=== PATIENT | male | born 1955 | race Caucasian/White ===

== ENCOUNTER 2016-06-03 15:51 | Emergency (ER) | payer MEDICAID | END 2016-06-03 20:15 | disposition home or self-care (01) | LOC: D.ER 15:51 | DX: J20.9 Acute bronchitis, unspecified (principal); F41.9 Anxiety disorder, unspecified; F31.9 Bipolar disorder, unspecified ==

== ENCOUNTER 2016-09-16 23:55 | Emergency (ER) | payer MEDICAID | END 2016-09-17 02:31 | disposition home or self-care (01) | LOC: D.ER 23:55 | DX: M54.9 Dorsalgia, unspecified (principal); S29.012A Strain of muscle and tendon of back wall of thorax, initial encounter; V43.52XA Car driver injured in collision with other type car in traffic accident, initial encounter; Y93.89 Activity, other specified; Y92.410 Unspecified street and highway as the place of occurrence of the external cause; S39.012A Strain of muscle, fascia and tendon of lower back, initial encounter; F41.9 Anxiety disorder, unspecified; F31.9 Bipolar disorder, unspecified ==

== ENCOUNTER 2017-01-01 11:32 | Emergency (ER) | payer MEDICAID | END 2017-01-01 12:12 | disposition home or self-care (01) | LOC: D.ER 11:32 | DX: F41.9 Anxiety disorder, unspecified (principal); F31.89 Other bipolar disorder; R53.1 Weakness; R51 Headache ==

== ENCOUNTER 2017-01-11 16:19 | Emergency (ER) | payer MEDICAID ==
[2017-01-11 17:57] LABS: BASOPHILS 0.1 % (0-2); EOSINOPHILS 0.4 % (0-7); HEMATOCRIT 47.4 % (42.0-54.0); HEMOGLOBIN 16.3 g/dL (13.5-17.5); IMMATURE GRANULOCYTES 0.9 % (0-5); LYMPHOCYTES 18.4 % (15-50); MCH 30.4 pg (26.0-34.0); MCHC 34.4 g/dL (31.0-37.0); MCV 88.3 fL (80.0-100.0); MEAN PLATELET VOLUME 9.3 fL (7.4-10.4); MONOCYTES 9.6 % (2-11); NEUTROPHILS 70.6 % (40-80); PLATELET COUNT 228 10x3/uL (130-400); RBC 5.37 10x6/uL (4.20-6.10); RDW 13.6 % (11.5-14.5); WBC 9.2 10x3/uL (4.8-10.8)
[2017-01-11 18:54] LABS: APPEARANCE CLEAR (CLEAR); BILIRUBIN NEGATIVE (NEGATIVE); COLOR YELLOW (YELLOW); GLUCOSE NEGATIVE (NEGATIVE); KETONE NEGATIVE (NEGATIVE); LEUKOCYTE ESTERASE NEGATIVE (NEGATIVE); NITRITE NEGATIVE (NEGATIVE); PROTEIN NEGATIVE (NEGATIVE); UROBILINOGEN NORMAL (NORMAL)
== END 2017-01-11 19:10 | disposition home or self-care (01) ==
LOC: D.ER 16:19
PROVIDERS: Emergency Medicine; Nurse Practitioner Family
DX: S16.1XXA Strain of muscle, fascia and tendon at neck level, initial encounter (principal); X58.XXXA Exposure to other specified factors, initial encounter; Y93.89 Activity, other specified; Y92.89 Other specified places as the place of occurrence of the external cause; S39.012A Strain of muscle, fascia and tendon of lower back, initial encounter; M79.605 Pain in left leg; M79.604 Pain in right leg; F31.89 Other bipolar disorder; R07.9 Chest pain, unspecified; R51 Headache

== ENCOUNTER 2017-01-19 16:25 | Emergency (ER) | payer MEDICAID | END 2017-01-19 18:41 | disposition home or self-care (01) | LOC: D.ER 16:25 | DX: M54.6 Pain in thoracic spine (principal); M25.50 Pain in unspecified joint; F31.89 Other bipolar disorder; R51 Headache ==

== ENCOUNTER 2017-02-10 19:00 | Emergency (ER) | payer MEDICAID | END 2017-02-10 20:32 | disposition home or self-care (01) | LOC: D.ER 19:00 | DX: R52 Pain, unspecified (principal) ==

== ENCOUNTER 2017-04-05 15:48 | Emergency (ER) | payer MEDICAID ==
[2017-04-05 16:25] LABS: BASOPHILS 0.1 % (0-2); EOSINOPHILS 0.5 % (0-7); HEMATOCRIT 47.4 % (42.0-54.0); HEMOGLOBIN 16.4 g/dL (13.5-17.5); IMMATURE GRANULOCYTES 0.5 % (0-5); LYMPHOCYTES 8.8 % (15-50); MCH 30.5 pg (26.0-34.0); MCHC 34.6 g/dL (31.0-37.0); MCV 88.1 fL (80.0-100.0); MEAN PLATELET VOLUME 9.2 fL (7.4-10.4); MONOCYTES 1.8 % (2-11); NEUTROPHILS 88.3 % (40-80); PLATELET COUNT 193 10x3/uL (130-400); RBC 5.38 10x6/uL (4.20-6.10); RDW 13.1 % (11.5-14.5); WBC 14.4 10x3/uL (4.8-10.8)
[2017-04-05 17:18] LABS: ALBUMIN 4.1 g/dL (3.4-5.0); ALKALINE PHOSPHATASE 104 U/L (46-116); ALT (SGPT) 31 U/L (10-68); BILIRUBIN - TOTAL 0.48 mg/dL (0.2-1.3); CALC OSMOLALITY 276 mosm/kg (275-300); CALCIUM 9.1 mg/dL (8.5-10.1); CARBON DIOXIDE 25.7 mmol/L (21.0-32.0); CHLORIDE - SERUM 101 mmol/L (98-107); GLUCOSE 92 mg/dL (74-106); POTASSIUM - SERUM 3.9 mmol/L (3.5-5.1); PROTEIN - SERUM 7.7 g/dL (6.4-8.2); SODIUM 139 mmol/L (136-145); UREA NITROGEN 11 mg/dL (7-18); eGFR NON AFRICAN AMERICAN 81 mL/min (90-120)
[2017-04-05 17:52] LABS: APPEARANCE HAZY (CLEAR); BILIRUBIN NEGATIVE (NEGATIVE); COLOR DK YELLOW (YELLOW); GLUCOSE NEGATIVE (NEGATIVE); KETONE NEGATIVE (NEGATIVE); NITRITE NEGATIVE (NEGATIVE); PROTEIN NEGATIVE (NEGATIVE); SPECIFIC GRAVITY 1.015 (1.005-1.020); UROBILINOGEN NORMAL (NORMAL)
[2017-04-05 17:55] LABS: BACTERIA FEW /hpf (NONE SEEN); EPITHELIAL CELLS 0-5 /hpf (0-5); RED CELLS - URINE >50 /hpf (0-5); WHITE CELLS - URINE OCC /hpf (0-5)
== END 2017-04-05 20:11 | disposition left against medical advice (07) ==
LOC: D.ER 15:48
PROVIDERS: Emergency Medicine; Physician Assistant Medical
DX: R51 Headache (principal)

== ENCOUNTER 2017-04-07 17:04 | Emergency (ER) | payer MEDICAID ==
[2017-04-07 19:35] LABS: BASOPHILS 0.1 % (0-2); EOSINOPHILS 0 % (0-7); HEMATOCRIT 46.9 % (42.0-54.0); HEMOGLOBIN 16.2 g/dL (13.5-17.5); IMMATURE GRANULOCYTES 0.7 % (0-5); LYMPHOCYTES 13.6 % (15-50); MCH 29.9 pg (26.0-34.0); MCHC 34.5 g/dL (31.0-37.0); MCV 86.7 fL (80.0-100.0); MEAN PLATELET VOLUME 9.4 fL (7.4-10.4); MONOCYTES 6.3 % (2-11); NEUTROPHILS 79.3 % (40-80); PLATELET COUNT 152 10x3/uL (130-400); RBC 5.41 10x6/uL (4.20-6.10); RDW 13.5 % (11.5-14.5); WBC 7.6 10x3/uL (4.8-10.8)
[2017-04-07 19:49] LABS: ALBUMIN 3.6 g/dL (3.4-5.0); ALKALINE PHOSPHATASE 107 U/L (46-116); ALT (SGPT) 29 U/L (10-68); BILIRUBIN - TOTAL 0.57 mg/dL (0.2-1.3); CALC OSMOLALITY 272 mosm/kg (275-300); CALCIUM 9.1 mg/dL (8.5-10.1); CHLORIDE - SERUM 101 mmol/L (98-107); GLUCOSE 109 mg/dL (74-106); POTASSIUM - SERUM 3.5 mmol/L (3.5-5.1); PROTEIN - SERUM 7.7 g/dL (6.4-8.2); SODIUM 136 mmol/L (136-145); UREA NITROGEN 13 mg/dL (7-18); eGFR NON AFRICAN AMERICAN 81 mL/min (90-120)
[2017-04-07 19:52] LABS: CARBON DIOXIDE 23.4 mmol/L (21.0-32.0)
[2017-04-07 21:21] LABS: APPEARANCE CLOUDY (CLEAR); COLOR AMBER (YELLOW)
[2017-04-07 21:22] LABS: BILIRUBIN NEGATIVE (NEGATIVE); GLUCOSE NEGATIVE (NEGATIVE); KETONE LARGE mg/dL (NEGATIVE); NITRITE NEGATIVE (NEGATIVE); PROTEIN TRACE mg/dL (NEGATIVE); SPECIFIC GRAVITY 1.015 (1.005-1.020); UROBILINOGEN NORMAL (NORMAL)
[2017-04-07 21:23] LABS: RED CELLS - URINE 25-50 /hpf (0-5); WHITE CELLS - URINE 0-5 /hpf (0-5)
[2017-04-07 21:24] LABS: BACTERIA FEW /hpf (NONE SEEN)
== END 2017-04-07 22:50 | disposition home or self-care (01) ==
LOC: D.ER 17:04
PROVIDERS: Family Medicine
DX: R50.9 Fever, unspecified (principal); N40.0 Benign prostatic hyperplasia without lower urinary tract symptoms; B34.9 Viral infection, unspecified; F17.200 Nicotine dependence, unspecified, uncomplicated

== ENCOUNTER 2017-05-10 10:02 | Emergency (ER) | payer MEDICAID | END 2017-05-10 10:49 | disposition home or self-care (01) | LOC: D.ER 10:02 | DX: F41.9 Anxiety disorder, unspecified (principal) ==

== ENCOUNTER 2017-08-20 13:16 | Emergency (ER) | payer MEDICAID | END 2017-08-20 16:00 | disposition home or self-care (01) | LOC: D.ER 13:16 | DX: M79.605 Pain in left leg (principal) ==

== ENCOUNTER 2017-11-04 17:39 | Emergency (ER) | payer MEDICAID ==
[~2017-11-04] VITALS: Ht 182.9 cm; Wt 86.4 kg
[2017-11-04 17:48] VITALS: Ht 182.9 cm; Wt 86.4 kg
[2017-11-04] MEDS ORDERED: BUPROPION HCL100 MG PO ×2 (17:51→19:10)
[2017-11-04] MEDS ORDERED: TRAZODONE HCL150 MG PO (17:51)
[2017-11-04] MEDS ORDERED: TRAZODONE HCL50 MG PO (19:10)
[2017-11-04 19:14] VITALS: BP 136/87
== END 2017-11-04 19:15 | disposition home or self-care (01) ==
LOC: D.ER 17:39
DX: R51 Headache (principal); F41.9 Anxiety disorder, unspecified

== ENCOUNTER 2017-12-17 11:03 | Emergency (ER) | payer MEDICAID ==
[~2017-12-17] VITALS: Ht 182.9 cm; Wt 80.5 kg
[~2017-12-17 11:03] MED LIST: BUPROPION HCL100 MG PO; TRAZODONE HCL150 MG PO; TRAZODONE HCL50 MG PO
[2017-12-17 11:11] VITALS: Ht 182.9 cm; Wt 80.5 kg
[2017-12-17] MEDS ORDERED: LAMICTAL100 MG PO (11:13)
[2017-12-17] MEDS ORDERED: NEURONTIN 300300 MG PO (11:15)
[2017-12-17 13:17] LABS: BASOPHILS 0.1 % (0-2); EOSINOPHILS 0.4 % (0-7); HEMATOCRIT 44.1 % (42.0-54.0); HEMOGLOBIN 15.2 g/dL (13.5-17.5); IMMATURE GRANULOCYTES 0.1 % (0-5); LYMPHOCYTES 15.2 % (15-50); MCH 30.4 pg (26.0-34.0); MCHC 34.5 g/dL (31.0-37.0); MCV 88.2 fL (80.0-100.0); MEAN PLATELET VOLUME 9.5 fL (7.4-10.4); MONOCYTES 3.9 % (2-11); NEUTROPHILS 80.3 % (40-80); PLATELET COUNT 220 10x3/uL (130-400); RDW 13.5 % (11.5-14.5)
[2017-12-17 13:45] LABS: ALBUMIN 3.9 g/dL (3.4-5.0); ALKALINE PHOSPHATASE 90 U/L (46-116); ALT (SGPT) 20 U/L (10-68); BILIRUBIN - TOTAL 0.41 mg/dL (0.2-1.3); CALC OSMOLALITY 279 mosm/kg (275-300); CALCIUM 8.8 mg/dL (8.5-10.1); CARBON DIOXIDE 27.2 mmol/L (21.0-32.0); CHLORIDE - SERUM 104 mmol/L (98-107); CREATININE - SERUM 0.8 mg/dL (0.6-1.3); GLUCOSE 134 mg/dL (74-106); POTASSIUM - SERUM 3.5 mmol/L (3.5-5.1); PROTEIN - SERUM 7.2 g/dL (6.4-8.2); SODIUM 140 mmol/L (136-145); UREA NITROGEN 11 mg/dL (7-18); eGFR NON AFRICAN AMERICAN > 90 mL/min (90-120)
[2017-12-17 13:57] LABS: TROPONIN-I < 0.017 ng/mL (0.000-0.060)
[2017-12-17 15:36] VITALS: BP 132/89
== END 2017-12-17 15:33 | disposition home or self-care (01) ==
LOC: D.ER 11:03
PROVIDERS: Emergency Medicine
DX: R53.1 Weakness (principal)

== ENCOUNTER 2018-02-26 18:40 | Emergency (ER) | payer MEDICAID ==
[~2018-02-26] VITALS: Ht 182.9 cm; Wt 84.1 kg
[~2018-02-26 18:40] MED LIST changes: +LAMICTAL100 MG PO; +NEURONTIN 300300 MG PO
[2018-02-26 19:06] VITALS: Ht 182.9 cm; Wt 84.1 kg
[2018-02-26] MEDS ORDERED: LAMICTAL ODT200 MG PO (19:31)
[2018-02-26] MEDS ORDERED: BUPROPION HCL200 M1 PO (19:31)
[2018-02-26 19:40] VITALS: BP 130/64
== END 2018-02-26 19:41 | disposition home or self-care (01) ==
LOC: D.ER 18:40
DX: Z76.0 Encounter for issue of repeat prescription (principal)